=== PATIENT | male | born 1980 | race Caucasian/White ===

== ENCOUNTER 2025-02-22 11:03 | Emergency (ER) | payer MEDICAID, SELFPAY ==
--- OUTSIDE RECORDS SUMMARY | 2023-09-14 11:15 | XMS_ITS ---
Author Organization [facility] Address [address] [place] [address] Care Team Providers Care Cut Off Man Name Role Phone Vitaliy Gastelum Primary Care Provider REASON FOR VISIT (IN OFFICE), Follow Up Encounters Encounter Location Date Provider Diagnosis [facility] [address] [place] [address] 09/14/19 24 Vitaliy Gastelum PLAN OF TREATMENT No Information
--- OUTSIDE RECORDS SUMMARY | 2023-10-25 05:00 | XMS_ITS ---
Author Organization [facility] Address [address] [place] [address] Care Team Providers Care Railway Signal Electrician Name Role Phone NatalisabraVitaliy Primary Care Provider ALLERGIES Allergen (clinical drug ingredient) Drug/Non Drug Allergy documented on EMR Reaction Allergy Type Onset Date Status Shellfish (FN) Shellfish-derived Products Unknown Drug Allergy Active REASON FOR VISIT NO SHOW (IN OFFICE), Follow Up MEDICATIONS Medication SIG (Take, Route, Frequency, Duration) Notes Start Date End Date Status Pantoprazole Sodium 40 MG 1 tablet Orall y Once a day for 30 day(s) Active LORazepam 0.5 MG 1 tablet as needed O rally Once a day for 30 days 08/15/2023 Active FLUoxetine HCl 10 MG 1 capsule Orally On ce a day for 30 day(s) 08/15/2023 Active Linzess 145 MCG 1 capsule at least 3 0 minutes before the first meal of the day on an empty stomach Orally Once a day for 30 day(s) 07/26/2023 Active Vitamin D3 25 MCG (1000 UT) 1 capsule Or ally Once a day for 90 Days 07/26/2023 Active Docusate Sodium 100 MG 1 capsule as need ed Orally Once a day for 30 day(s) Active Ondansetron 4 MG 1 tablet on the tong ue and allow to dissolve Orally Once a day for 30 day(s) Active SOCIAL HISTORY Tobacco Use: Social History Observation Description Date Details (start date - stop date) Former Smoker NA - NA Sex Assigned At : Social History Observation Description Sex Assigned At Unknown Tobacco Use/Smoking Question Answer Notes Are you a former smoker Encounters Encounter Location Date Provider Diagnosis [facility], [address] [place] [address] 10/25/2023 Vitaliy Gastelum Generalized abdomina l pain R10.84 ; Nausea and vomiting in adult R11.2 and Constipation, unspecified constipation type K59.00 ASSESSMENTS Encounter Date Diagnosis Assessment Notes Treatment Notes Treatment Clinical Notes Section Notes 10/25/2023 Generalized abdominal pain (ICD-10 - R10.84) 10/25/2023 Nausea and vomiting in adult (ICD-10 - R11.2) 10/25/2023 Constipation, unspecified constipation type (ICD-10 - K59.00) 10/25/2023 Other This chart has been transcribed by a computerized dictation system. There are likely to be multiple truck farmer inaccuracies despite chart review. PLAN OF TREATMENT Medication Medication Name Sig Start Date Stop Date Notes Pantoprazole Sodium 40 MG 1 tablet Orall y Once a day for 30 day(s) Docusate Sodium 100 MG 1 capsule as need ed Orally Once a day for 30 day(s) Ondansetron 4 MG 1 tablet on the tong ue and allow to dissolve Orally Once a day for 30 day(s) Treatment Notes Assessment Notes Other This chart has been transcribed by a computerized dictation system. There are likely to be multiple truck farmer inaccuracies despite chart review. Progress Notes * Examination Category Sub-Category Detail Notes Category Not es General Examination GENERAL APPEARANCE: in no ac [place] distress, well developed, well nourished HEAD: normocephalic, atrau matic EYES: pupils equal, round, reactive to light and accommodation THROAT: clear, no erythema, uvula midline, no exudate NECK/THYROID: neck supple, no thyr omegaly, trachea midline, no carotid bruit HEART: no murmurs, regular rate and rhythm, S1, S2 normal LUNGS: clear to auscultatio n bilaterally ABDOMEN: soft, nontender, non distended, no organomegaly , bowel sounds present NEUROLOGIC: alert and oriented x 3, nonfocal SKIN: no suspicious lesion s, warm and dry EXTREMITIES: no clubbing, cyanosi s, or edema PERIPHERAL PULSES: normal, 2+ throughou t MUSCULOSKELETAL: normal, full range o f motion LYMPH NODES: no cervical, axillar y, supraclavicular or inguinal adenopathy PSYCH: cognitive function i ntact, mood/affect full range ORAL CAVITY: mucosa moist, no les ions, palate normal, tongue in midline, well papillated History and Physical Notes * HPI (History of Present Illness) Category Sub-Category Detail Notes Category Not es Symptom(s) 43-year-old mal e patient with history of abdominal pain and constipation is here for complaining of abdominal pain and nausea. He went to the emergency room last night and was given lorazepam which helped his symptoms. Patient is interested in waiting to be evaluated by changer fixer. I extended the patient that his GI symptoms could be anxiety related. I advised the patient to start fluoxetine 10 mg by mouth daily. I explained to the patient that he can increase the dose to 20 mg after a couple of weeks if he does not feel any better. I also sent a prescription for lorazepam 0.5 MG one by mouth daily when necessary. I explained to the patient that he should be very Well be lorazepam due to its addictive properties.
--- OUTSIDE RECORDS SUMMARY | 2024-03-25 07:09 | XMS_ITS ---
Author Organization [facility] Address [address] [place] [address] Care Team Providers Care Per Diem Name Role Phone Vitaliy Gastelum Primary Care Provider [phone] REASON FOR VISIT Referral Encounters Encounter Location Date Provider Diagnosis [facility] [address] [place] [address] 03/25/20 24 Vitaliy Gastelum PLAN OF TREATMENT No Information
--- OUTSIDE RECORDS SUMMARY | 2024-03-25 07:30 | XMS_ITS ---
Author Organization [facility] Address [address] [place] [address] Care Team Providers Care Stud Dairy Cattle Farmer Name Role Phone Rgdustin Vitaliy Primary Care Provider ALLERGIES Allergen (clinical drug ingredient) Drug/Non Drug Allergy documented on EMR Reaction Allergy Type Onset Date Status Shellfish (FN) Shellfish-derived Products Unknown Drug Allergy Active REASON FOR VISIT (IN OFFICE), Follow Up MEDICATIONS Medication SIG (Take, Route, Frequency, Duration) Notes Start Date End Date Status Ondansetron 4 MG 1 tablet on the tong ue and allow to dissolve Orally Once a day for 30 day(s) Active LORazepam 0.5 MG 1 tablet as needed O rally Once a day for 30 days 08/15/2023 Active FLUoxetine HCl 10 MG 1 capsule Orally On ce a day 08/15/2023 Active Linzess 145 MCG 1 capsule at least 3 0 minutes before the first meal of the day on an empty stomach Orally Once a day for 30 day(s) 07/26/2023 Active Docusate Sodium 100 MG 1 capsule as need ed Orally Once a day for 30 day(s) Active Vitamin D3 25 MCG (1000 UT) 1 capsule Or ally Once a day for 90 Days 07/26/2023 Active Pantoprazole Sodium 40 MG 1 tablet Orall y Once a day Active SOCIAL HISTORY Tobacco Use: Social History Observation Description Date Details (start date - stop date) Former Smoker NA - NA Sex Assigned At : Social History Observation Description Sex Assigned At Unknown Tobacco Use/Smoking Question Answer Notes Are you a former smoker PROBLEMS Problem Type ICD Code Onset Dates Problem Status W/U Status Risk SNOMED Code Notes Problem Gastroesophageal reflux disease without esophagitis (K21.9) Active confirmed [id number] VITAL SIGNS Height 67 in 03/25/2024 Weight 174 lbs 03/25/2024 BMI 27.25 kg/m2 03/25/2024 Blood pressure systolic 120 mm Hg 03/25/20 24 Blood pressure diastolic 80 mm Hg 024 Heart Rate 76 /min 03/25/2024 Encounters Encounter Location Date Provider Diagnosis [email or web address] [address] 03/25/2024 Vitaliy [facility] Nausea and vomiting in adult R11.2 ; Gastroesophageal reflux disease without esophagitis K21.9 ; Constipation, unspecified constipation type K59.00 and Generalized abdominal pain R10.84 ASSESSMENTS Encounter Date Diagnosis Assessment Notes Treatment Notes Treatment Clinical Notes Section Notes 03/25/2024 Nausea and vomiting in adult (ICD-10 - R11.2) 03/25/2024 Gastroesophageal reflux disease without esophagitis (ICD-10 - K21.9) 03/25/2024 Constipation, unspecified constipation type (ICD-10 - K59.00) 03/25/2024 Generalized abdominal pain (ICD-10 - R10.84) 03/25/2024 Other This chart has been transcribed by a computerized dictation system. There are likely to be multiple motel clerk inaccuracies despite chart review. PLAN OF TREATMENT Medication Medication Name Sig Start Date Stop Date Notes Ondansetron 4 MG 1 tablet on the tong ue and allow to dissolve Orally Once a day for 30 day(s) FLUoxetine HCl 10 MG 1 capsule Orally Once a day Docusate Sodium 100 MG 1 capsule as need ed Orally Once a day for 30 day(s) Pantoprazole Sodium 40 MG 1 tablet Orally Once a day Treatment Notes Assessment Notes Other This chart has been transcribed by a computerized dictation system. There are likely to be multiple motel clerk inaccuracies despite chart review. Next Appt Details Follow Up: 3 Months, Reason: Follow-up Progress Notes * Examination Category Sub-Category Detail Notes Category Not es General Examination GENERAL APPEARANCE: in no ac [place] distress, well developed, well nourished HEAD: normocephalic, [...] 43-year-old mal e patient with history of GERD, generalized anxiety disorder, vitamin D deficiency, abdominal pain and constipation is here for follow-up. Patient is compliant with his medications without any side effects. He is anxiety disorder is well controlled on current dose of fluoxetine. Lorazepam only occasionally for worsening of anxiety and at times helped him sleep at night. His GI symptoms are well-controlled on medications.
--- OUTSIDE RECORDS SUMMARY | 2024-06-25 07:15 | XMS_ITS ---
Author Organization [facility] Address [address] [place] [address] Care Team Providers Care Bucket Hooker Name Role Phone RgVitaliy chan Primary Care Provider [phone] ALLERGIES Allergen (clinical drug ingredient) Drug/Non Drug Allergy documented on EMR Reaction Allergy Type Onset Date Status Shellfish (FN) Shellfish-derived Products Unknown Drug Allergy Active REASON FOR VISIT (IN OFFICE), Follow Up MEDICATIONS Medication SIG (Take, Route, Frequency, Duration) Notes Start Date End Date Status Docusate Sodium 100 MG 1 capsule as need ed Orally Once a day for 30 day(s) Active FLUoxetine HCl 10 MG 1 capsule Orally On ce a day Active Ondansetron 4 MG 1 tablet on the tong ue and allow to dissolve Orally Once a day for 30 day(s) Active Pantoprazole Sodium 40 MG 1 tablet Orall y Once a day Active FLUoxetine HCl 10 MG TAKE 1 CAPSULE BY M OUTH DAILY for 30 Active Vitamin D3 25 MCG (1000 UT) 1 capsule Or ally Once a day for 90 Days 07/26/2023 Active Linzess 145 MCG 1 capsule at least 3 0 minutes before the first meal of the day on an empty stomach Orally Once a day for 30 day(s) 07/26/2023 Active LORazepam 0.5 MG TAKE 1 TABLET BY HONORIO TH DAILY NEEDED for 30 03/25/2024 Active Pantoprazole Sodium 40 MG TAKE 1 TABLET BY MOUTH DAILY for 90 Active SOCIAL HISTORY Tobacco Use: Social History Observation Description Date Details (start date - stop date) Former Smoker NA - NA Sex Assigned At : Social History Observation Description Sex Assigned At Unknown Tobacco Use/Smoking Question Answer Notes Are you a former smoker Encounters Encounter Location Date Provider Diagnosis [facility], [address] [place] [address] 06/25/2024 Vitaliy [facility] Nausea and vomiting in adult R11.2 ; Gastroesophageal reflux disease without esophagitis K21.9 ; Constipation, unspecified constipation type K59.00 and Generalized abdominal pain R10.84 ASSESSMENTS Encounter Date Diagnosis Assessment Notes Treatment Notes Treatment Clinical Notes Section Notes 06/25/2024 Nausea and vomiting in adult (ICD-10 - R11.2) 06/25/2024 Gastroesophageal reflux disease without esophagitis (ICD-10 - K21.9) 06/25/2024 Constipation, unspecified constipation type (ICD-10 - K59.00) 06/25/2024 Generalized abdominal pain (ICD-10 - R10.84) 06/25/2024 Other This chart has been transcribed by a computerized dictation system. There are likely to be multiple adhesive primer inaccuracies despite chart review. PLAN OF TREATMENT Medication Medication Name Sig Start Date Stop Date Notes Docusate Sodium 100 MG 1 capsule as need ed Orally Once a day for 30 day(s) FLUoxetine HCl 10 MG 1 capsule Orally Once a day Ondansetron 4 MG 1 tablet on the tong ue and allow to dissolve Orally Once a day for 30 day(s) Pantoprazole Sodium 40 MG 1 tablet Orally Once a day Treatment Notes Assessment Notes Other This chart has been transcribed by a computerized dictation system. There are likely to be multiple adhesive primer inaccuracies despite chart review. Progress Notes * Examination Category Sub-Category Detail Notes Category Not es General Examination GENERAL APPEARANCE: in no ac [place] distress, well developed, well nourished HEAD: normocephalic, [...] Sub-Category Detail Notes Category Not es Symptom(s) 44-year-old mal e patient with history of GERD, [...]
--- NOTE | ~2025-02-22 | CT_ITS ---
CLINICAL HISTORY: diffuse abd pain CT abdomen and pelvis with contrast Comparison: US/SR - US SCROTUM - 02/22/25 11:49 EDT Findings: CT abdomen: No infiltrates within the lung bases. No acute bony lesions. Liver, spleen, pancreas, gallbladder, and adrenal glands are unremarkable for acute findings. 1 cm simple cyst within the interpolar region of the right kidney. Left kidney is unremarkable. Air-filled distention of the distal esophagus with small hiatal hernia. No dilated small bowel. No free fluid or free air. CT pelvis: No findings of appendicitis. No colonic wall thickening or pericolonic inflammatory stranding. No bladder calculi. No free fluid or free air. IMPRESSION: 1. Negative CT of the appendix. 2. Small hiatal hernia with findings suggestive of gastroesophageal reflux. 3. No acute solid organ abnormality. This document has been electronically signed by: Darin Fox MD on 02/22/2025 14:47:56
--- NOTE | ~2025-02-22 | US_ITS ---
CLINICAL HISTORY: testicular pain US Scrotum with Doppler Comparison: None provided Findings: Right testicle measures 4.4 x 2.3 x 2.9 cm in size. Left testicle measures 4.5 x 2.2 x 2.5 cm in size. Testicles are of normal echotexture bilaterally without mass lesion. Bilateral epididymi are unremarkable. Small right hydrocele. No scrotal thickening. Duplex evaluation of the testicles was performed. This included real-time grayscale, color spectral Doppler analysis and color Doppler flow imaging. Documented blood flow to both testicles. IMPRESSION: Unremarkable scrotal ultrasound. This document has been electronically signed by: Darin Fox MD on 02/22/2025 14:29:13
[2025-02-22 11:10] VITALS: BP 177/93; PULSE 81; RESP 22; TEMP 36.7; O2SAT 100; BMI 20.1
--- NOTE | 2025-02-22 11:13 | ECG_ITS ---
Test Reason : abdominal pain Blood Pressure : */* mmHG Vent. Rate : 53 BPM Atrial Rate : 53 BPM P-R Int : 152 ms QRS Dur : 88 ms QT Int : 390 ms P-R-T Axes : 76 51 59 degrees QTcB Int : 365 ms Sinus bradycardia Otherwise normal ECG No previous ECGs available Referred By: Kd Sher Electronically Signed By: ALICE HOYOS MD
--- NOTE | 2025-02-22 11:16 | ED.GENADULT ---
HPI - General Adult General Chief complaint: Abdominal Pain Stated complaint: vomiting, back pain due to fall Time Seen by Provider: 02/22/25 11:25 Source: patient and family Mode of arrival: ambulatory Limitations: no limitations History of Present Illness ED Provider: DR. Sanchez HPI narrative: 44-year-old male came in for evaluation of abdominal pain, nausea, and vomiting x5 days. No history of exposure to a sick contacts, no recent travel, questionable eating bad food before got sick at work, no recent use of antibiotic. Diffuse abdominal pain you radiation pain, pain is associated with nausea and vomiting and subjective fever, last bowel movement with earlier today and was little bit loose stool, +passing flatus. Also complaining of left testicular pain on and off, no fever, no chills. No history of intra-abdominal surgery in the past. Related Data Previous Rx's ?Medication ?Instructions ?Recorded omeprazole 40 mg capsule,delayed 40 mg PO DAILY #20 caps 02/22/25 release ondansetron 4 mg disintegrating 4 mg PO Q6H PRN nausea and 02/22/25 tablet vomiting #7 tabs Allergies Allergy/AdvReac Type Severity Reaction Status Date / Time shellfish derived (shellfish) Allergy Intermediate Anaphylaxis Verified 02/22/25 11:14 Review of Systems Review of Systems: All other systems are reviewed and are negative Constitutional: Reports as per HPI and Reports no additional constitutional complaints Eyes: Reports as per HPI and Reports no additional eye complaints Reports system reviewed and no additional complaints, except as documented Cardiovascular: Reports as per HPI and Reports no additional cardiovascular complaints Respiratory: Reports as per HPI and Reports no additional respiratory complaints Gastrointestinal: Reports as per HPI and Reports no additional gastrointestinal complaints Genitourinary: Reports no additional female genitourinary complaints Musculoskeletal: Reports no additional musculoskeletal complaints Skin/Breast: Reports system reviewed and no additional complaints, except as docu Psychiatric: Reports no additional psychiatric complaints Endocrine: Reports no additional endocrine complaints Hematologic/Lymphatic: Reports no additional hematologic/lymphatic complaints Allergic/Immunologic: Reports no additional allergic/immunologic complaints Reports system reviewed and no additional complaints, except as documented and Reports Abnormal speech present [facility] Social History Social History Advance Directives: No Advance Directives Information Provided: Yes Do you have a plan to hurt others: No Plan Physical Exam ED Vital Signs: Vital Signs - 24 hr 02/22/25 11:10 02/22/25 15:56 02/22/25 18:27 Temperature 98.1 F 98.4 F Pulse Rate 81 45 L 58 Respiratory Rate 22 H 15 16 Blood Pressure 177/93 H 107/69 149/79 H Pulse Oximetry 100 99 99 Oxygen Delivery Method Room Air Room Air Room Air 02/22/25 18:47 Temperature 98.4 F Pulse Rate 58 Respiratory Rate 16 Blood Pressure 149/79 H Pulse Oximetry 99 Oxygen Delivery Method Room Air BMI result Body Mass Index 20.1 Vital signs have been reviewed and appear to be correct. Blood pressure elevated. Heart rate normal. Respiratory rate normal. Temperature normal. Oxygen saturation normal. Appearance: Alert. Oriented X3. No acute distress. Head: Normal external exam. Normocephalic. Atraumatic. No Haile signs noted. No raccoon eyes noted Eyes: PERRLA. EOMI. Conjunctiva and sclera normal. Eyelids normal. ENT: TM's Normal. Pharynx normal. Uvula midline. Moist mucous membranes. No trismus noted. No drooling noted. No muffled voice noted. Neck: Normal inspection. Neck supple. FROM. No adenopathy. Thyroid Normal. No meningeal signs. No neck mass noted. CVS: Normal heart rate and rhythm. Heart sound normal. No murmurs noted. Pulses normal throughout. Respiratory: No respiratory distress. Painless inspiration. Breath sounds normal. No wheezes/rales/rhonchi noted. Chest nontender. No accessory muscle usage noted or decreased air movement noted. Abdomen: Soft and nontender. Bowel sounds normal in all 4 quadrants. No distention noted. No organomegaly noted. No visible injury noted. Back: No CVA tenderness. Full range of motion noted. Skin: Skin warm and dry. Normal skin color. Normal skin turgor. No rashes/lesions/lacerations noted. Extremities: No lower extremity edema. Extremities exhibit normal range of motion. Extremities nontender. Neuro: Oriented X 3. Cranial nerve exam: II-XII are grossly intact No motor deficit. No sensory deficit. Reflexes normal. Course Course Course Narrative: RME: 44 yold male with no pmh presents to the ED for epigastrsic now generalized abdominal pain radiating to the back pain with testicular pain since . patient states also fell due to pain, but no head trauma. positive for generalized abdominal tendrenss on palpation. labs, EKG, testicular ultrasound ordered. Reevaluation(s) Reevaluation #1: 44-year-old male came in for abdominal pain with nausea and vomiting, patient received Maalox, Prilosec, Zofran with improvement of patient's symptoms, able to tolerate p.o. intake without nausea or vomiting will reassure and discharge home. Time: 15:30 Reevaluation #2: PALMER Turner 02/22/25 1820 I received patient in sign-out pending p.o. trial and disposition. In summary, patient presented to the ED today for nausea, vomiting and abdominal pain x days. Believes he is having a reaction to food poisoning. CBC shows leukocytosis to 13 with left shift. Urinalysis negative for blood or infection. Negative COVID, flu. Scrotal ultrasound does not demonstrate torsion or epididymitis. CT abdomen/pelvis unremarkable. Findings concerning for GERD. On re-evaluation, patient reports improvement in symptoms after receiving medications in the ED. Patient had an episode of bradycardia down to 45 beats per minute. This was after receiving Dilaudid. His vitals have remained stable. I do not feel as though this is cardiac in etiology. He is well-appearing, tolerating water and crackers at bedside. Both him and are anxious for discharge home. Omeprazole and Zofran sent to pharmacy. Patient has remained stable throughout ED visit today. Discussed worrisome signs and symptoms and when to return to the ED. All questions answered at this time. Patient is agreeable with disposition and stable for discharge. Medications Administered Discontinued Medications Generic Name Dose Route Start Last Admin Trade Name Deoq PRN Reason Stop Dose Admin Al Hydroxide/Mg Hydroxide 30 ml 02/22/25 11:37 02/22/25 16:31 Magnesium Hydrox/Alum Hydrox 30 Ml Oral.Susp PO 02/22/25 11:38 Not Given ONCE ONE Hydromorphone HCl 1 mg 02/22/25 15:13 02/22/25 15:26 Hydromorphone Hcl 1 Mg/Ml Syringe IVPUSH 02/22/25 15:14 1 mg ONCE ONE Administration Protocol Iohexol 100 ml 02/22/25 12:24 02/22/25 12:25 Iohexol 350 Mg/Ml 100 Ml Infus..Btl IV 02/22/25 12:25 85 ml ONCE ONE Administration Ketorolac Tromethamine 15 mg 02/22/25 15:13 02/22/25 15:26 Ketorolac Tromethamine 15 Mg/Ml Vial IVPUSH 02/22/25 15:14 15 mg ONCE ONE Administration Omeprazole 40 mg 02/22/25 11:37 02/22/25 16:31 Omeprazole 40 Mg Capsule.Dr PO 02/22/25 11:38 Not Given ONCE ONE Ondansetron HCl 4 mg 02/22/25 11:13 02/22/25 11:15 Ondansetron Odt 4 Mg Tab.Rapdis TRANSLINGU 02/22/25 11:14 4 mg ONCE ONE Administration Ondansetron HCl 4 mg 02/22/25 11:37 02/22/25 11:47 Ondansetron Hcl 4 Mg/2 Ml Vial IVPUSH 02/22/25 11:38 4 mg ONCE ONE Administration Ondansetron HCl 4 mg 02/22/25 12:56 02/22/25 13:01 Ondansetron Hcl 4 Mg/2 Ml Vial IVPUSH 02/22/25 12:57 4 mg ONCE ONE Administration Medical Decision Making Differential Diagnosis Differential Diagnoses: The differential diagnosis associated with the presentation includes (Colitis, diverticulitis, pancreatitis, acute appendicitis, electrolyte derangement, severe anemia, dehydration, gallbladder infection, food poisoning, gastroenteritis.) Admission/Observation Consideration of admission/observation: Escalation of care including admission/observation considered Lab Data MDM Lab Attestation statement: I reviewed the patient's lab results. 02/22/25 11:39 02/22/25 11:39 Labs: Lab Results 02/22/25 02/22/25 02/22/25 Range/Units 11:38 11:39 11:42 WBC 13.1 H (4.8-10.8) X10*3/uL RBC 4.96 (4.60-5.80) X10*6/uL Hgb 15.2 (14.0-18.0) g/dl Hct 43.5 (42.0-52.0) % MCV 87.7 (80.0-98.0) fL MCH 30.6 (27.0-33.0) pg MCHC 34.9 (31.0-36.0) g/dl RDW 15.3 (11.0-16.0) % Plt Count 245 (160-400) X10*3/uL MPV 10.9 (9.4-12.4) fL Immature Gran % (Auto) 0.5 H (0.0-0.4) % Neut % (Auto) 81.4 H (45-73) % Lymph % (Auto) 10.6 L (20-40) % [place] % (Auto) 6.4 (2-11) % Eos % (Auto) 0.8 (0-4) % Baso % (Auto) 0.3 (0-2) % Lymph # (Auto) 1.4 (1.2-4.9) X10*3/uL [place] # (Auto) 0.8 (0.1-1.2) X10*3/uL Eos # (Auto) 0.1 (0.0-0.4) X10*3/uL Baso # (Auto) 0.0 (0.0-0.2) X10*3/uL Abs Immat Gran (auto) 0.06 H (0.00-0.03) X10*3/uL Absolute Neuts (auto) 10.7 H (2.0-8.3) x10*3/uL Absolute Nucleated RBC 0.000 (0.0-0.012) X10*3/uL Nucleated RBC % (auto) 0.0 (0.0-0.2) /100WBC Sodium 139 (135-145) mmol/L Potassium 4.1 (3.3-5.1) mmol/L Chloride 106 (96-108) mmol/L Carbon Dioxide 24 (22-29) mmol/L Anion Gap 13 (12-20) BUN 19 H (9-16) mg/dL Creatinine 0.93 (0.5-1.4) mg/dL Estim Creat Clear Calc 91.0 Estimated GFR > 60 Random Glucose 122 H (60-115) mg/dL Calcium 9.0 (8.4-10.2) mg/dL Total Bilirubin 0.6 (0.0-1.0) mg/dL AST 20 (5-37) U/L ALT 23 (0-40) U/L Alkaline Phosphatase 72 (39-117) U/L Total Protein 7.0 (6.5-8.0) g/dL Albumin 4.3 (3.5-5.0) g/dL Lipase 37 (8-78) U/L Urine Color Urine Appearance Urine pH (5.0-9.0) Ur Specific [place] (1.005-1.025) Urine Protein (Neg-Trace) mg/dL Urine Glucose (UA) (Negative) mg/dL Urine Ketones (Negative) mg/dL Urine Blood (Negative) Urine Nitrite (Negative) Ur Leukocyte Esterase (Negative) Stool Occult Blood NEGATIVE (NEGATIVE) COVID-19 (MADELINE) Negative (Negative) COVID-19 Clin Com See Note Influenza Type A (OMRRIS) Negative (Negative) Influenza Type B (MORRIS) Negative (Negative) Influenza A & B Note See Note 02/22/25 Range/Units 15:30 WBC (4.8-10.8) X10*3/uL RBC (4.60-5.80) X10*6/uL Hgb (14.0-18.0) g/dl Hct (42.0-52.0) % MCV (80.0-98.0) fL MCH (27.0-33.0) pg MCHC (31.0-36.0) g/dl RDW (11.0-16.0) % Plt Count (160-400) X10*3/uL MPV (9.4-12.4) fL Immature Gran % (Auto) (0.0-0.4) % Neut % (Auto) (45-73) % Lymph % (Auto) (20-40) % [place] % (Auto) (2-11) % Eos % (Auto) (0-4) % Baso % (Auto) (0-2) % Lymph # (Auto) (1.2-4.9) X10*3/uL [place] # (Auto) (0.1-1.2) X10*3/uL Eos # (Auto) (0.0-0.4) X10*3/uL Baso # (Auto) (0.0-0.2) X10*3/uL Abs Immat Gran (auto) (0.00-0.03) X10*3/uL Absolute Neuts (auto) (2.0-8.3) x10*3/uL Absolute Nucleated RBC (0.0-0.012) X10*3/uL Nucleated RBC % (auto) (0.0-0.2) /100WBC Sodium (135-145) mmol/L Potassium (3.3-5.1) mmol/L Chloride (96-108) mmol/L Carbon Dioxide (22-29) mmol/L Anion Gap (12-20) BUN (9-16) mg/dL Creatinine (0.5-1.4) mg/dL Estim Creat Clear Calc Estimated GFR Random Glucose (60-115) mg/dL Calcium (8.4-10.2) mg/dL Total Bilirubin (0.0-1.0) mg/dL AST (5-37) U/L ALT (0-40) U/L Alkaline Phosphatase (39-117) U/L Total Protein (6.5-8.0) g/dL Albumin (3.5-5.0) g/dL Lipase (8-78) U/L Urine Color Yellow Urine Appearance Clear Urine pH 8.5 (5.0-9.0) Ur Specific [place] >= 1.030 H (1.005-1.025) Urine Protein Negative (Neg-Trace) mg/dL Urine Glucose (UA) Negative (Negative) mg/dL Urine Ketones 15 (Negative) mg/dL Urine Blood Negative (Negative) Urine Nitrite Negative (Negative) Ur Leukocyte Esterase Negative (Negative) Stool Occult Blood (NEGATIVE) COVID-19 (MADELINE) (Negative) COVID-19 Clin Com Influenza Type A (MORRIS) (Negative) Influenza Type B (MORRIS) (Negative) Influenza A & B Note Independent Interpretation I performed an independent interpretation of an: Ultrasound (Scrotal ultrasound unremarkable scrotal ultrasound.) and CT Scan (Abdomen pelvis:1. Negative CT of the appendix. 2. Small hiatal hernia with findings suggestive of gastroesophageal reflux. 3. No acute solid organ abnormality.) Discharge Plan Discharge Clinical Impression: Abdominal pain, Food poisoning Patient Disposition: Home, Self-Care Instructions: Food Poisoning (ED) Additional Instructions: Follow-up with your PCP. Drink plenty of fluids. If unable to drink or symptoms improving return to the emergency department. Prescriptions: New ondansetron 4 mg tablet,disintegrating 4 mg PO Q6H PRN (Reason: nausea and vomiting) Qty: 7 0RF omeprazole 40 mg capsule,delayed release(DR/EC) 40 mg PO DAILY Qty: 20 0RF Stand Alone Forms: Work/School Release Interventions: ED Discharge Assessment Last Done: 02/22/25 18:47 Discharge Date/Time: 02/22/25 18:56 Print Language: [place] African
--- NOTE | 2025-02-22 11:40 | ED.ABDPAIN ---
HPI - Abdominal Pain General Chief Complaint: Abdominal Pain Stated Complaint: vomiting, back pain due to fall Time Seen by Provider: 02/22/25 11:25 Source: patient and family Mode of arrival: ambulatory Limitations: no limitations History of Present Illness ED Provider: DR. Sanchez HPI narrative: 44-year-old male came in for evaluation of 2 days of nausea, vomiting, nonbloody watery diarrhea, diffuse abdominal pain. Patient's symptoms started 2 days ago at work after eating hamburger, no other sick contacts, co-worker ate the same food 2 days ago no body reportedly is sick. No fever, no chills. Related Data Previous Rx's ?Medication ?Instructions ?Recorded omeprazole 40 mg capsule,delayed 40 mg PO DAILY #20 caps 02/22/25 release ondansetron 4 mg disintegrating 4 mg PO Q6H PRN nausea and 02/22/25 tablet vomiting #7 tabs Allergies Allergy/AdvReac Type Severity Reaction Status Date / Time shellfish derived (shellfish) Allergy Intermediate Anaphylaxis Verified 02/22/25 11:14 Review of Systems Review of Systems All other systems are reviewed and are negative Constitutional: Reports as per HPI and Reports no additional constitutional complaints Eyes: Reports as per HPI and Reports no additional eye complaints Reports system reviewed and no additional complaints, except as documented Cardiovascular: Reports as per HPI and Reports no additional cardiovascular complaints Respiratory: Reports as per HPI and Reports no additional respiratory complaints Gastrointestinal: Reports as per HPI and Reports no additional gastrointestinal complaints Genitourinary: Reports no additional female genitourinary complaints Musculoskeletal: Reports no additional musculoskeletal complaints Skin/Breast: Reports system reviewed and no additional complaints, except as docu Psychiatric: Reports no additional psychiatric complaints Endocrine: Reports no additional endocrine complaints Hematologic/Lymphatic: Reports no additional hematologic/lymphatic complaints Allergic/Immunologic: Reports no additional allergic/immunologic complaints Reports system reviewed and no additional complaints, except as documented and Reports Abnormal speech present [facility] Social History Social History Advance Directives: No Advance Directives Information Provided: Yes Do you have a plan to hurt others: No Plan Physical Exam ED Vital Signs: Vital Signs - 24 hr 02/22/25 11:10 Temperature 98.1 F Pulse Rate 81 Respiratory Rate 22 H Blood Pressure 177/93 H Pulse Oximetry 100 Oxygen Delivery Method Room Air BMI result Body Mass Index 20.1 Vital signs have been reviewed and appear to be correct. Blood pressure elevated. Heart rate normal. Respiratory rate normal. Temperature normal. Oxygen saturation normal. Appearance: Alert. Oriented X3. No acute distress. Head: Normal external exam. Normocephalic. Atraumatic. No Haile signs noted. No raccoon eyes noted Eyes: PERRLA. EOMI. Conjunctiva and sclera normal. Eyelids normal. ENT: TM's Normal. Pharynx normal. Uvula midline. Moist mucous membranes. No trismus noted. No drooling noted. No muffled voice noted. Neck: Normal inspection. Neck supple. FROM. No adenopathy. Thyroid Normal. No meningeal signs. No neck mass noted. CVS: Normal heart rate and rhythm. Heart sound normal. No murmurs noted. Pulses normal throughout. Respiratory: No respiratory distress. Painless inspiration. Breath sounds normal. No wheezes/rales/rhonchi noted. Chest nontender. No accessory muscle usage noted or decreased air movement noted. Abdomen: Soft and nontender. Bowel sounds normal in all 4 quadrants. No distention noted. No organomegaly noted. No visible injury noted. Rectal examination: Stool is brown guaiac negative. exam: Unremarkable examination, normal inspection, + cremasteric reflex bilaterally. Back: No CVA tenderness. Full range of motion noted. Skin: Skin warm and dry. Normal skin color. Normal skin turgor. No rashes/lesions/lacerations noted. Extremities: No lower extremity edema. Extremities exhibit normal range of motion. Extremities nontender. Neuro: Oriented X 3. Cranial nerve exam: II-XII are grossly intact No motor deficit. No sensory deficit. Reflexes normal. Course Reevaluation(s) Reevaluation #1: Patient feel better able to tolerate p.o. intake with reassuring blood workup and radiographic studies. Medical Decision Making Differential Diagnosis Differential Diagnoses: The differential diagnosis associated with the presentation includes (Acute appendicitis, acute diverticulitis, gastroenteritis, food poisoning, gastritis, electrolyte derangement, severe anemia.) Admission/Observation Consideration of admission/observation: Escalation of care including admission/observation considered Lab Data MDM Lab Attestation statement: I reviewed the patient's lab results. 02/22/25 11:39 02/22/25 11:39 Labs: Lab Results 02/22/25 02/22/25 02/22/25 Range/Units 11:38 11:39 11:42 WBC 13.1 H (4.8-10.8) X10*3/uL RBC 4.96 (4.60-5.80) X10*6/uL Hgb 15.2 (14.0-18.0) g/dl Hct 43.5 (42.0-52.0) % MCV 87.7 (80.0-98.0) fL MCH 30.6 (27.0-33.0) pg MCHC 34.9 (31.0-36.0) g/dl RDW 15.3 (11.0-16.0) % Plt Count 245 (160-400) X10*3/uL MPV 10.9 (9.4-12.4) fL Immature Gran % (Auto) 0.5 H (0.0-0.4) % Neut % (Auto) 81.4 H (45-73) % Lymph % (Auto) 10.6 L (20-40) % [place] % (Auto) 6.4 (2-11) % Eos % (Auto) 0.8 (0-4) % Baso % (Auto) 0.3 (0-2) % Lymph # (Auto) 1.4 (1.2-4.9) X10*3/uL [place] # (Auto) 0.8 (0.1-1.2) X10*3/uL Eos # (Auto) 0.1 (0.0-0.4) X10*3/uL Baso # (Auto) 0.0 (0.0-0.2) X10*3/uL Abs Immat Gran (auto) 0.06 H (0.00-0.03) X10*3/uL Absolute Neuts (auto) 10.7 H (2.0-8.3) x10*3/uL Absolute Nucleated RBC 0.000 (0.0-0.012) X10*3/uL Nucleated RBC % (auto) 0.0 (0.0-0.2) /100WBC Sodium 139 (135-145) mmol/L Potassium 4.1 (3.3-5.1) mmol/L Chloride 106 (96-108) mmol/L Carbon Dioxide 24 (22-29) mmol/L Anion Gap 13 (12-20) BUN 19 H (9-16) mg/dL Creatinine 0.93 (0.5-1.4) mg/dL Estim Creat Clear Calc 91.0 Estimated GFR > 60 Random Glucose 122 H (60-115) mg/dL Calcium 9.0 (8.4-10.2) mg/dL Total Bilirubin 0.6 (0.0-1.0) mg/dL AST 20 (5-37) U/L ALT 23 (0-40) U/L Alkaline Phosphatase 72 (39-117) U/L Total Protein 7.0 (6.5-8.0) g/dL Albumin 4.3 (3.5-5.0) g/dL Lipase 37 (8-78) U/L Urine Color Urine Appearance Urine pH (5.0-9.0) Ur Specific [place] (1.005-1.025) Urine Protein (Neg-Trace) mg/dL Urine Glucose (UA) (Negative) mg/dL Urine Ketones (Negative) mg/dL Urine Blood (Negative) Urine Nitrite (Negative) Ur Leukocyte Esterase (Negative) Stool Occult Blood NEGATIVE (NEGATIVE) COVID-19 (MADELINE) Negative (Negative) COVID-19 Clin Com See Note Influenza Type A (MORRIS) Negative (Negative) Influenza Type B (MORRIS) Negative (Negative) Influenza A & B Note See Note 02/22/25 Range/Units 15:30 WBC (4.8-10.8) X10*3/uL RBC (4.60-5.80) X10*6/uL Hgb (14.0-18.0) g/dl Hct (42.0-52.0) % MCV (80.0-98.0) fL MCH (27.0-33.0) pg MCHC (31.0-36.0) g/dl RDW (11.0-16.0) % Plt Count (160-400) X10*3/uL MPV (9.4-12.4) fL Immature Gran % (Auto) (0.0-0.4) % Neut % (Auto) (45-73) % Lymph % (Auto) (20-40) % [place] % (Auto) (2-11) % Eos % (Auto) (0-4) % Baso % (Auto) (0-2) % Lymph # (Auto) (1.2-4.9) X10*3/uL [place] # (Auto) (0.1-1.2) X10*3/uL Eos # (Auto) (0.0-0.4) X10*3/uL Baso # (Auto) (0.0-0.2) X10*3/uL Abs Immat Gran (auto) (0.00-0.03) X10*3/uL Absolute Neuts (auto) (2.0-8.3) x10*3/uL Absolute Nucleated RBC (0.0-0.012) X10*3/uL Nucleated RBC % (auto) (0.0-0.2) /100WBC Sodium (135-145) mmol/L Potassium (3.3-5.1) mmol/L Chloride (96-108) mmol/L Carbon Dioxide (22-29) mmol/L Anion Gap (12-20) BUN (9-16) mg/dL Creatinine (0.5-1.4) mg/dL Estim Creat Clear Calc Estimated GFR Random Glucose (60-115) mg/dL Calcium (8.4-10.2) mg/dL Total Bilirubin (0.0-1.0) mg/dL AST (5-37) U/L ALT (0-40) U/L Alkaline Phosphatase (39-117) U/L Total Protein (6.5-8.0) g/dL Albumin (3.5-5.0) g/dL Lipase (8-78) U/L Urine Color Yellow Urine Appearance Clear Urine pH 8.5 (5.0-9.0) Ur Specific [place] >= 1.030 H (1.005-1.025) Urine Protein Negative (Neg-Trace) mg/dL Urine Glucose (UA) Negative (Negative) mg/dL Urine Ketones 15 (Negative) mg/dL Urine Blood Negative (Negative) Urine Nitrite Negative (Negative) Ur Leukocyte Esterase Negative (Negative) Stool Occult Blood (NEGATIVE) COVID-19 (MADELINE) (Negative) COVID-19 Clin Com Influenza Type A (MORRIS) (Negative) Influenza Type B (MORRIS) (Negative) Influenza A & B Note Independent Interpretation I performed an independent interpretation of an: CT Scan (Abdomen and pelvis CT: Negative CT abdomen and pelvis for acute appendicitis.) Radiology Impression Discussion of test interpretation with radiology: I have reviewed the radiologist's reading. Medications Administered Discontinued Medications Generic Name Dose Route Start Last Admin Trade Name Frejuan PRN Reason Stop Dose Admin Al Hydroxide/Mg Hydroxide 30 ml 02/22/25 11:37 02/22/25 16:31 Magnesium Hydrox/Alum Hydrox 30 Ml Oral.Susp PO 02/22/25 11:38 Not Given ONCE ONE Hydromorphone HCl 1 mg 02/22/25 15:13 02/22/25 15:26 Hydromorphone Hcl 1 Mg/Ml Syringe IVPUSH 02/22/25 15:14 1 mg ONCE ONE Administration Protocol Iohexol 100 ml 02/22/25 12:24 02/22/25 12:25 Iohexol 350 Mg/Ml 100 Ml Infus..Btl IV 02/22/25 12:25 85 ml ONCE ONE Administration Ketorolac Tromethamine 15 mg 02/22/25 15:13 02/22/25 15:26 Ketorolac Tromethamine 15 Mg/Ml Vial IVPUSH 02/22/25 15:14 15 mg ONCE ONE Administration Omeprazole 40 mg 02/22/25 11:37 02/22/25 16:31 Omeprazole 40 Mg Capsule.Dr PO 02/22/25 11:38 Not Given ONCE ONE Ondansetron HCl 4 mg 02/22/25 11:13 02/22/25 11:15 Ondansetron Odt 4 Mg Tab.Rapdis TRANSLINGU 02/22/25 11:14 4 mg ONCE ONE Administration Ondansetron HCl 4 mg 02/22/25 11:37 02/22/25 11:47 Ondansetron Hcl 4 Mg/2 Ml Vial IVPUSH 02/22/25 11:38 4 mg ONCE ONE Administration Ondansetron HCl 4 mg 02/22/25 12:56 02/22/25 13:01 Ondansetron Hcl 4 Mg/2 Ml Vial IVPUSH 02/22/25 12:57 4 mg ONCE ONE Administration Discharge Plan Discharge Clinical Impression: Abdominal pain, Food poisoning Patient Disposition: Home, Self-Care Instructions: Food Poisoning (ED) Additional Instructions: Follow-up with your PCP. Drink plenty of fluids. If unable to drink or symptoms improving return to the emergency department. Prescriptions: New ondansetron 4 mg tablet,disintegrating 4 mg PO Q6H PRN (Reason: nausea and vomiting) Qty: 7 0RF omeprazole 40 mg capsule,delayed release(DR/EC) 40 mg PO DAILY Qty: 20 0RF Stand Alone Forms: Work/School Release Interventions: ED Discharge Assessment Last Done: 02/22/25 18:47 Discharge Date/Time: 02/22/25 18:56 Print Language: Greek
[2025-02-22 11:43] LABS: MANUAL DIFF FLAG NO
[2025-02-22 11:45] LABS: Hematocrit 43.5 % (42.0-52.0); Hemoglobin 15.2 g/dl (14.0-18.0); Imm Gran Abs Auto 0.06 X10*3/uL (0.00-0.03); Imm Gran Pct Auto 0.5 % (0.0-0.4); Lymphocytes Absolute Auto 1.4 X10*3/uL (1.2-4.9); Mean Corpuscular HGB Conc 34.9 g/dl (31.0-36.0); Mean Corpuscular Hemoglobin 30.6 pg (27.0-33.0); Mean Corpuscular Volume 87.7 fL (80.0-98.0); NRBC Abs Auto 0.000 X10*3/uL (0.0-0.012); NRBC Pct Auto 0.0 /100WBC (0.0-0.2); Platelet Count 245 X10*3/uL (160-400); Red Blood Count 4.96 X10*6/uL (4.60-5.80); White Blood Count 13.1 X10*3/uL (4.8-10.8)
[2025-02-22 11:47] LABS: OBS1 NEGATIVE (NEGATIVE)
[2025-02-22 11:48] LABS: OBS Int Ctl Valid YES
--- OUTSIDE RECORDS SUMMARY | 2025-02-22 11:51 | XMS_ITS | Patient Health Record ---
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 Role Phone NatalisabraVitaliy Primary Care Provider ALLERGIES Allergen (clinical drug ingredient) Drug/Non Drug Allergy documented on EMR Reaction Allergy Type Onset Date Status Shellfish (FN) Shellfish-derived Products Unknown Drug Allergy Active REASON FOR REFERRAL No Information MEDICATIONS Medication SIG (Take, Route, Frequency, Duration) [...] a day for 30 day(s) 07/26/2023 Active FLUoxetine HCl 10 MG 1 capsule Orally On ce a day Active Ondansetron 4 MG 1 tablet on the tong ue and allow to dissolve Orally Once a day for 30 day(s) Active Pantoprazole Sodium 40 MG 1 tablet Orall y Once a day Active LORazepam 0.5 MG TAKE 1 TABLET BY HONORIO TH DAILY NEEDED for 30 03/25/2024 Active FLUoxetine HCl 10 MG TAKE 1 CAPSULE BY M OUTH DAILY for 30 Active Pantoprazole Sodium 40 MG TAKE 1 [...] W/U Status Risk SNOMED Code Notes Problem Vitamin D deficiency (E55.9) Active confirmed 83466389 Problem Generalized anxiety disorder (F41.1) Active confirmed 92818488 Problem Constipation, unspecified constipation type (K59.00) Active confirmed 78037923 Problem Gastroesophageal reflux disease without esophagitis (K21.9) Active confirmed 993239941 VITAL SIGNS Heart Rate 76 /min 03/25/2024 Blood pressure diastolic 80 mm Hg 03/25/2024 Height 67 in 03/25/2024 Blood pressure systolic 120 mm Hg 03/25/2024 Weight 174 lbs 03/25/2024 BMI 27.25 kg/m2 03/25/2024 Encounters Encounter Location Date Provider Diagnosis [address] [address] 03/25/[address] [address] 03/25/2024 Vitaliy Gastelum Nausea and vomiting in adult R11.2 ; Gastroesophageal reflux disease without esophagitis K21.9 ; Constipation, unspecified constipation type K59.00 and Generalized abdominal pain R10.[address] [address] 06/25/2024 Vitaliy Gastelum Nausea and vomiting in adult R11.2 ; Gastroesophageal reflux disease without esophagitis K21.9 ; Constipation, unspecified constipation type K59.00 and Generalized abdominal pain R10.84 ASSESSMENTS Encounter Date Diagnosis Assessment Notes Treatment Notes Treatment Clinical Notes Section Notes 06/25/2024 Nausea and vomiting in adult (ICD-10 - R11.2) 03/25/2024 Gastroesophageal reflux disease without esophagitis (ICD-10 - K21.9) 03/25/2024 Nausea and vomiting in adult (ICD-10 - R11.2) 06/25/2024 Gastroesophageal reflux disease without esophagitis (ICD-10 - K21.9) 03/25/2024 Constipation, unspecified constipation type (ICD-10 - K59.00) 06/25/2024 Constipation, unspecified constipation type (ICD-10 - K59.00) 03/25/2024 Generalized abdominal pain (ICD-10 - R10.84) 06/25/2024 Generalized abdominal pain (ICD-10 - R10.84) 03/25/2024 Other This chart has been transcribed by a computerized dictation system. There are likely to be multiple network systems administrator inaccuracies despite chart review. 06/25/2024 Other This chart has been transcribed by a computerized dictation system. There are likely to be multiple network systems administrator inaccuracies despite chart review. PLAN OF TREATMENT Pending Test Test Name Order Date 25OH VITAMIN D 07/09/2023 AMYLASE 07/09/2023 CBC (COMPLETE BLOOD COUNT) WITH DIFF C-REACTIVE PROTEIN 07/09/2023 H. PYLORI UREA BREATH TEST 07/09/2023 LIPASE 07/09/2023 LIPID PANEL 07/09/2023 PORPHYRINS, TOTAL W/REFLEX TO FRACTIONS 07/09/2023 PORPHYRINS, URINE, RANDOM, QUANT 024 SEDIMENTATION RATE 07/09/2023 THYROID PANEL (TSH, FT4) 07/09/2023 URINALYSIS, COMPLETE 07/09/2023 Insurance Providers Payer Name Payer Address Payer Phone Subscriber Number Group Number Insured Name Patient Relationship to Insured Coverage Start Date Coverage End Date [facility] [address] [place] [phone] [id number] Daniel Balbuena Self - patient is the insured MEDICAL (GENERAL) HISTORY Surgical History Surgery Date(Month/Year)
--- OUTSIDE RECORDS SUMMARY | 2025-02-22 11:51 | XMS_ITS ---
Author Name [facility] Organization Unknown Encounters Encounter Type Encounter Reason Primary Diagnosis Location Date [facility]) 02/22/2025 Care Team Organization Name Specialty Phone Email Start Date End [facility] 02/22/2025 [facility] 02/22/2025
--- OUTSIDE RECORDS SUMMARY | 2025-02-22 11:52 | XMS_ITS | Clinical Summary ---
Author Organization 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 Use with spacer. Active Social History Tobacco Use Types Packs/Day Years Used Date Smoking Tobacco: Never Smokeless Tobacco: Never Tobacco Cessation:Counseling Given: Not Answered Alcohol Use Standard Drinks/Week Comments Never 0 (1 standard drink = 0.6 oz pur e alcohol) Sex and Gender Information Value Date Recorded Sex Assigned at Male 08/14/2023 7:19 PM EDT Legal Sex Male 10:00 AM EDT Gender Identity Male 08/18/2023 7:33 PM EDT Sexual Orientation Straight 08/18/2023 7: 33 PM EDT Last Filed Vital Signs Vital Sign Reading Time Taken Comments Blood Pressure 118/48 08/14/2023 10:07 PM EDT Pulse 79 08/14/2023 10:07 PM EDT Temperature 36.8 C (98.3 F) 08/14/2023 6:41 PM EDT Respiratory Rate 22 08/14/2023 10:04 PM EDT Oxygen Saturation 99% 08/14/2023 10:04 PM EDT Inhaled Oxygen Concentration - - Weight 68 kg (150 lb) 06/16/2023 7:34 PM EST Height 177.8 cm (5' 10 ) 06/16/2023 7:34 PM EST Body Mass Index 21.52 06/16/2023 7:34 PM EST Plan of Treatment Health Maintenance Due Date Last Done Comments HIV Screening 1980 Hepatitis C Screening 1980 Varicella Vaccines (1 of 2 - 13+ 2-dose series) 1993 Hepatitis B Vaccines (1 of 3 - 19+ 3-dose series) 1999 Pneumococcal Vaccine: Pediat yoselin (0-5 Years) and At-Risk Patients (6-50 Years) (2 of 2 - PCV) 12/16/2015 12/15/2014 DTaP,Tdap,and Td Vaccines (3 - Td or Tdap) 12/10/2023 12/09/2013, 07/28/2005 Alcohol/Substance Use Screening 05/21/2024 Depression Screening and Follow-Up 05/21/2024 Social Drivers of Health Annual Screening 05/21/2024 COVID-19 Vaccine (3 - 2024- season) 2025, 09/15/2020 Influenza Vaccine (#1) 2025 RSV Vaccine (60+ years old a nd patients) (1 - 1-dose 75+ series) 2055 Insurance [employer] Care Teams 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
[2025-02-22 11:57] LABS: Alanine Aminotransferase 23 U/L (0-40); Albumin Level 4.3 g/dL (3.5-5.0); Alkaline Phosphatase 72 U/L (39-117); Anion Gap 13 (12-20); Aspartate Amino Transferase 20 U/L (5-37); Blood Urea Nitrogen 19 mg/dL (9-16); Calcium 9.0 mg/dL (8.4-10.2); Carbon Dioxide 24 mmol/L (22-29); Chloride 106 mmol/L (96-108); Creatinine Clr Calc Pharmacy 91.0; Estimated Glomerular Filt Rate > 60; Lipase 37 U/L (8-78); Potassium 4.1 mmol/L (3.3-5.1); Sodium 139 mmol/L (135-145); Total Protein 7.0 g/dL (6.5-8.0)
[2025-02-22 11:59] LABS: COVID-19 Test Negative (Negative); IDNOW Serial# 55D5AD1C
[2025-02-22 12:03] LABS: IDNOW Serial# 58CA691E; Influenza B2 Negative (Negative)
[2025-02-22] MEDS: iohexoL 350 MG/ML 100 ML INFUS..BTL IV (12:25)
[2025-02-22 15:42] LABS: Appearance Urine Clear; Glucose Urine UA Negative (Negative); PH 8.5 (5.0-9.0); Specific Gravity - Urine >= 1.030 (1.005-1.025)
[2025-02-22 15:56] VITALS: BP 107/69; PULSE 45; RESP 15; O2SAT 99
[2025-02-22 18:27] VITALS: BP 149/79; PULSE 58; RESP 16; TEMP 36.9; O2SAT 99
[2025-02-22 18:47] VITALS: BP 149/79; PULSE 58; RESP 16; TEMP 36.9; O2SAT 99
== END 2025-02-22 18:56 | disposition home or self-care (01) ==
PROVIDERS: Physician Assistant; Emergency Provider Emergency Medicine
DX: A05.9 Bacterial foodborne intoxication, unspecified (principal); R11.2 Nausea with vomiting, unspecified; M54.50 Low back pain, unspecified; R50.9 Fever, unspecified; R00.1 Bradycardia, unspecified; N50.82 Scrotal pain; Z11.52 Encounter for screening for COVID-19; Z79.899 Other long term (current) drug therapy
CPT/HCPCS: 36415; 74177; 76870; 80053; 81003; 82272; 83690; 85025; 87502; 87635; 93005; 93975; 96374; 96375; 96376; 99284; 99285; J1171; J1885; J2405; Q9967

== ENCOUNTER → 2025-02-22 11:13 | Outpatient (BNV) | payer MEDICAID, SELFPAY | PROVIDERS: Emergency Provider Emergency Medicine; Visit Provider Internal Medicine Cardiovascular Disease | DX: R00.1 Bradycardia, unspecified (principal) | CPT/HCPCS: 93010 ==

== ENCOUNTER → 2025-02-22 11:14 | Outpatient (BNV) | payer MEDICAID, SELFPAY | PROVIDERS: Emergency Provider Emergency Medicine; Visit Provider Radiology Diagnostic Radiology | DX: N50.811 Right testicular pain (principal) | CPT/HCPCS: 74177; 76870; 93975 ==